=== PATIENT | male | born 2000 | race Caucasian/White ===

== ENCOUNTER 2023-06-23 16:11 | Emergency (ER) | payer MEDICAID, SELFPAY ==
--- NOTE | ~2023-06-23 | CT_ITS ---
EXAMINATION: CT BRAIN W/O DATE: 06/23/2023 17:23 INDICATION: Status post fall. TECHNIQUE: Computed tomography (CT) of the head was performed without intravenous contrast. The dose- length product was 605.33 mGy-cm. Automated exposure control and iterative reconstruction technique w ere employed. COMPARISON: No prior studies for comparison. FINDINGS: Normal brain parenchymal volume for age. Normal callahan-white differentiation. No acute intrac ranial hemorrhage, infarction, mass or mass effect. No ventriculomegaly or midline shift. Midline sagittal images demonstrate a normal corpus callosum, c raniovertebral junction and sella turcica. Basilar cisterns are patent. Paranasal sinuses and mastoids are pneumatized. No depressed skull fractures. IMPRESSION: 1. No acute intracranial abnormality. Reviewed, dictated and finalized at location A.
--- NOTE | ~2023-06-23 | CT_ITS ---
EXAMINATION: CT facial bones w con DATE: 06/23/2023 17:23 INDICATION: Lower lip abscess status post fall. TECHNIQUE: Computed tomography (CT) of the facial bones was performed with 75 cc Omnipaque 350 intrav enous contrast. The dose-length product was 325.27 mGy-cm. Automated exposure control and iterative r econstruction technique were employed. COMPARISON: None FINDINGS: There is soft tissue swelling of the lower lip. No discrete abscess. No significant cervica l lymphadenopathy. No acute fracture or traumatic malalignment. Leftward nasal septal deviation. Osti omeatal units are patent. Orbits intact. No mandibular abnormalities. Temporal mandibular joints are symmetric. No abnormality of the visualized cervical spine. IMPRESSION: 1. Moderate soft tissue swelling of the lower lip without discrete abscess. Reviewed, dictated and finalized at location A.
[2023-06-23 16:16] VITALS: BP 163/102; PULSE 95; RESP 14; TEMP 36.6; O2SAT 100
--- NOTE | 2023-06-23 16:35 | ED.WOUNDLAC ---
HPI - Wound/Laceration General Chief Complaint: Wound/Laceration <Margarita Mckenzie PA-C - Last Filed: 06/23/23 17:41> Stated Complaint: lip injury <Margarita Mckenzie PA-C - Last Filed: 06/23/23 17:41> Time Seen by Provider: 06/23/23 16:25 <Margarita Mckenzie PA-C - Last Filed: 06/23/23 17:41> History of Present Illness HPI narrative: 22-year-old male presents to emergency department for lower lip swelling and pain x1 day. Patient states yesterday was playing football, he tripped and fell and landed on his face. States his tooth punctured his lower lip. States he started taking a leftover antibiotic that he had in his lip has become more swollen. It is draining purulent drainage. Denies history of same. Denies fevers, nausea or vomiting, neck pain or back pain. Denies loss of consciousness.. Unknown last tetanus. <Margarita Mckenzie PA-C - Last Filed: 06/23/23 17:41> Related Data Allergies/Adverse Reactions: Allergies Allergy/AdvReac Type Severity Reaction Status Date / Time No Known Allergies Allergy Verified 06/23/23 16:19 <Margarita Mckenzie PA-C - Last Filed: 06/23/23 17:41> Review of Systems Review of Systems: CONSTITUTIONAL: Denies fever, chills, or sweats. EYES: Denies visual changes, redness, or discharge. ENT: See HPI CARDIOVASCULAR: Denies chest pain, palpitations, or edema. RESPIRATORY: Denies cough or dyspnea. GASTROINTESTINAL: Denies abdominal pain, nausea, vomiting, or diarrhea. GENITOURINARY: Denies dysuria or hematuria. SKIN: Denies rash or itching. MUSCULOSKELETAL: Denies back pain, joint pain, or myalgia. NEUROLOGIC: Denies headache, numbness, or weakness. PSYCHIATRIC: Denies anxiety or depression. <KELLEY Hunter Last Filed: 06/23/23 17:41> Exam Narrative: GENERAL: Well-appearing, well-nourished, and in no acute distress. HEAD: Normocephalic, atraumatic. EYES: PERRLA and EOMI. ENT: Nares clear, no rhinorrhea or epistaxis. Mucous membranes moist. Edema noted to the right lower lip with central puncture wound. There is active purulent drainage coming out of the puncture. No bleeding. No palpable areas of fluctuation. Normal dentition, no fractured teeth. No through and through laceration. NECK: No midline cervical spinous tenderness, step-offs or deformities. CHEST: Clear to auscultation. No respiratory distress. HEART: Regular rate and rhythm. No murmur heard. Normal peripheral pulses. ABDOMEN: Soft, nontender, nondistended, normal active bowel sounds. EXTREMITIES: Normal range of motion. No edema. SKIN: Warm, dry, no rash. NEURO: No focal deficits. Alert and oriented x3 <Margarita Mckenzie PA-C - Last Filed: 06/23/23 17:41> Course SLPS/PA Physician Supervision I agree with midlevel documentation; I performed the medical decision making component of this evaluation. <Yue Higgins MD - Last Filed: 06/23/23 19:43> Vital Signs Vital signs: Vital Signs Temperature 97.8 F 06/23/23 16:16 Pulse Rate 95 06/23/23 16:16 Respiratory Rate 14 06/23/23 16:16 Blood Pressure 163/102 H 06/23/23 16:16 Pulse Oximetry 100 06/23/23 16:16 Oxygen Delivery Room Air 06/23/23 16:16 Temperature 97.8 F 06/23/23 16:16 Pulse Rate 95 06/23/23 16:16 Respiratory Rate 14 06/23/23 16:16 Blood Pressure 163/102 H 06/23/23 16:16 Pulse Oximetry 100 06/23/23 16:16 Oxygen Delivery Room Air 06/23/23 16:16 <Margarita Mckenzie PA-C - Last Filed: 06/23/23 17:41> Vital Signs Temperature 97.8 F 06/23/23 16:16 Pulse Rate 95 06/23/23 16:16 Respiratory Rate 14 06/23/23 16:16 Blood Pressure 163/102 H 06/23/23 16:16 Pulse Oximetry 100 06/23/23 16:16 Oxygen Delivery Room Air 06/23/23 16:16 Temperature 97.8 F 06/23/23 16:16 Pulse Rate 95 06/23/23 16:16 Respiratory Rate 14 06/23/23 16:16 Blood Pressure 163/102 H 06/23/23 16:16 Pulse Oximetry 100 06/23/23 16:16 Oxygen Delivery Karol
[2023-06-23 16:50] LABS: Basophils Absolute Auto 0.1 K/mm3 (0.0-0.1); Basophils Percent Auto 0.6 % (0.2-1.2); Eosinophils Absolute Auto 0.1 K/mm3 (0-0.3); Hematocrit 46.5 % (42.0-52.0); Hemoglobin 15.4 g/dL (14.0-18.0); Immature Granulocyte Absolute 0.04 K/mm3 (0.00-0.031); Immature Granulocyte Percent A 0.3 % (0-0.5); Lymphocytes Absolute Auto 2.35 K/mm3 (0.9-3.2); Lymphocytes Percent Auto 18.5 % (18.3-44.2); Mean Corpuscular HGB Conc 33.1 g/dl (32-36); Mean Corpuscular Hemoglobin 30.3 pg (26-34); Mean Corpuscular Volume 91.4 fl (80-100); Mean Platelet Volume 9.5 fl (7.4-10.4); Monocytes Absolute Auto 1.4 K/mm3 (0.1-0.6); Monocytes Percent Auto 10.9 % (2.6-8.5); Neutrophils Absolute Auto 8.7 K/mm3 (1.3-6.7); Neutrophils Percent Auto 68.7 % (45.5-73.1); Platelet Count Result 275 k/mm3 (150-375); Red Blood Count 5.09 M/mm3 (4.6-6.20); White Blood Count 12.7 K/mm3 (4.5-10.0)
[2023-06-23 17:02] LABS: Anion Gap 4 mmol/L (8-16); Blood Urea Nitrogen 10 mg/dL (9-20); CRP 1.6 mg/dL (<1.0); Calcium 9.6 mg/dL (8.4-10.2); Carbon Dioxide 30 mmol/L (22-30); Chloride 106 mmol/L (98-107); Estimated CRCL calculation 146 ml/min; Estimated Glomerular Filt Rate > 60; Glucose 88 mg/dL (65-110); Potassium 3.9 mmol/L (3.4-5.0); Sodium 140 mmol/L (137-145)
[2023-06-23 17:12] LABS: Erythrocyte Sedimentation Rate 40 mm/hr (0-20)
[2023-06-23] MEDS: SULFAMETHOXAZOLE/TRIMETHOPRIM 800/160 MG DS TABLET 1 TAB PO (17:53)
[2023-06-23] MEDS: CEPHALEXIN 500 MG CAPSULE PO (17:53)
== END 2023-06-23 18:03 | disposition home or self-care (01) ==
LOC: ANHED 18:01
PROVIDERS: Emergency Provider Physician Assistant
DX: S01.531A Puncture wound without foreign body of lip, initial encounter (principal); L08.9 Local infection of the skin and subcutaneous tissue, unspecified; W01.0XXA Fall on same level from slipping, tripping and stumbling without subsequent striking against object, initial encounter; Y93.61 Activity, american tackle football
CPT/HCPCS: 36415; 70450; 70487; 80048; 85025; 85652; 86140; 99284; A9270; Q9967